=== PATIENT | female | born 1970 | race Caucasian/White ===

== ENCOUNTER 2017-12-03 16:44 | Emergency (ER) | payer OTHER ==
[2017-12-03] MEDS: MORPHINE SULFATE 4 MG/ML DISP.SYRIN. IV ×2 (17:42→19:55)
[2017-12-03] MEDS: PROPOFOL 10 MG/ML (20ML) VIAL. IV (20:07)
[2017-12-03] MEDS: oxyCODONE IR 5 MG TABLET PO (21:09)
[2017-12-03] MEDS ORDERED: ONDANSETRON ODT 4 MG TAB.RAPDIS. (21:15)
[2017-12-03] MEDS: ONDANSETRON ODT 4 MG TAB.RAPDIS. PO (21:17)
== END 2017-12-03 21:15 | disposition home or self-care (01) ==
LOC: ER 16:44
DX: S82.852A Displaced trimalleolar fracture of left lower leg, initial encounter for closed fracture (principal); I10 Essential (primary) hypertension; E03.9 Hypothyroidism, unspecified; Z98.890 Other specified postprocedural states; Z88.8 Allergy status to other drugs, medicaments and biological substances; W10.8XXA Fall (on) (from) other stairs and steps, initial encounter; Y93.89 Activity, other specified; Y99.8 Other external cause status; Y92.89 Other specified places as the place of occurrence of the external cause
CPT/HCPCS: 27818; 73610; 96374; 96376; 99285-25; J2270; J2704; Q0162